=== PATIENT | male | born 1980 | race African-American/Black ===

== ENCOUNTER 2016-05-02 12:34 | Emergency (ER) | payer OTHER ==
[~2016-05-02 12:34] MED LIST: IBUP800T PO
[2016-05-02] MEDS ORDERED: HYDR-971 PO (12:50)
[2016-05-02] MEDS ORDERED: PRED50TA PO (12:50)
[2016-05-02 13:00] VITALS: BP 150/107
--- NOTE | 2016-05-02 14:24 | ED.ADGEN ---
Past History Past Medical History: No Pertinent History Past Surgical History: No Surgical History Smoking: Cigarettes Alcohol Use: None Drug Use: Marijuana Adult General HPI HPI Patient is a 36-year-old male presents emergency department complaining of central low back pain 2 days after feeling a "pull" or a "pop" in his back while playing basketball. He was in the active raising his arms when he first noticed it. He reports that the pain waxes and wanes. Although he does deny any bowel or bladder dysfunction or saddle anesthesia. He tells that its more comfortable when he standing versus when he is sitting. Review of Systems Review of Systems Constitutional: Denies fever or chills [] Eyes: Denies change in visual acuity, redness, or eye pain [] HENT: Denies nasal congestion or sore throat [] Respiratory: Denies cough or shortness of breath [] Cardiovascular: No additional information not addressed in HPI [] GI: Denies abdominal pain, nausea, vomiting, bloody stools or diarrhea [] : Denies dysuria or hematuria [] Musculoskeletal: Denies back pain or joint pain [] Integument: Denies rash or skin lesions [] Neurologic: Denies headache, focal weakness or sensory changes [] Endocrine: Denies polyuria or polydipsia [] Allergies Allergies Allergies Coded Allergies Type Severity Reaction Last Updated Verified No Known Drug Allergies 08/03/13 No Physical Exam Physical Exam Constitutional: Well developed, well nourished, no acute distress, non-toxic appearance. [] HENT: Normocephalic, atraumatic, bilateral external ears normal, oropharynx moist, no oral exudates, nose normal. [] Eyes: PERRLA, EOMI, conjunctiva normal, no discharge. [] Neck: Normal range of motion, no tenderness, supple, no stridor. [] Cardiovascular:Heart rate regular rhythm, no murmur [] Lungs & Thorax: Bilateral breath sounds clear to auscultation [] Abdomen: Bowel sounds normal, soft, no tenderness, no masses, no pulsatile masses. [] Skin: Warm, dry, no erythema, no rash. [] Back: Lumbar tenderness palpation, no CVA tenderness. [] Extremities: No tenderness, no cyanosis, no clubbing, ROM intact, no edema. [] Neurologic: Alert and oriented X 3, normal motor function, normal sensory function, no focal deficits noted. [] Psychologic: Affect normal, judgement normal, mood normal. [] Current Patient Data Vital Signs Vital Signs Date Time Temp Pulse Resp B/P Pulse Ox O2 Delivery O2 Flow Rate FiO2 05/02/16 13:00 73 18 150/107 97 Room Air 05/02/16 12:34 98.0 EKG EKG [] Radiology/Procedures Radiology/Procedures [] Course & Med Decision Making Course & Med Decision Making Pertinent Labs and Imaging studies reviewed. (See chart for details) Prescription for prednisone and Sachse. Patient was given supportive care, follow -up instructions, and return precautions. He was see his regular physician after the weekend if he continues to have any discomfort. [] Final Impression Final Impression Low back pain [] Problems: Dragon Disclaimer Dragon Disclaimer This electronic medical record was generated, in whole or in part, using a voice recognition dictation system. MARINA MORA MD May 02, 2016 14:24
== END 2016-05-02 13:00 | disposition home or self-care (01) ==
LOC: ER 12:34
DX: M54.5 Low back pain (principal); F17.210 Nicotine dependence, cigarettes, uncomplicated; F12.10 Cannabis abuse, uncomplicated; X58.XXXA Exposure to other specified factors, initial encounter; Y93.67 Activity, basketball; Y99.8 Other external cause status; Y92.89 Other specified places as the place of occurrence of the external cause
CPT/HCPCS: 99283

== ENCOUNTER 2019-11-08 23:58 | Emergency (ER) | payer OTHER ==
[~2019-11-08] VITALS: Ht 175.3 cm; Wt 101.5 kg
[~2019-11-08 23:58] MED LIST changes: +HYDR-3165 PO; -IBUP800T PO; +IBUP800T19 PO; +PRED50TA PO
[2019-11-09 00:15] VITALS: BP 148/107
--- NOTE | 2019-11-09 00:21 | PHYS DOC ---
Past History Past Medical History: No Pertinent History Past Surgical History: No Surgical History Smoking: Cigarettes Alcohol Use: None Drug Use: Marijuana General Adult HPI: HPI: "... I got such bad pain.. I had to leave work.. at [employer].. ". I ve got a dental plan.. but have not been able to get... in ... this back tooth is killinjg me.. "".. The pain is really severe" Patient is a 39 year old male who presents with above hx and complaints of dental pain at tooth 32. Patient appears have an impacted wisdom tooth with surrounding inflammation. No pointing abscesses. No trismus. Mild adenopathy at angle of mandible. The patient denies any history immunosuppression. No recent travel. No history of ill contacts. Patient normally healthy. Review of Systems: Review of Systems: Constitutional: Denies fever or chills Eyes: Denies change in visual acuity HENT: Denies nasal congestion or sore throat . Complains of dental pain Respiratory: Denies cough or shortness of breath Cardiovascular: Denies chest pain or edema GI: Denies abdominal pain, nausea, vomiting, bloody stools or diarrhea : Denies dysuria Musculoskeletal: Denies back pain or joint pain Integument: Denies rash Neurologic: Denies headache, focal weakness or sensory changes Endocrine: Denies polyuria or polydipsia Lymphatic: Denies swollen glands Psychiatric: Denies depression or anxiety Heart Score: Risk Factors: Risk Factors: DM, Current or recent (<one month) smoker, HTN, HLP, family history of CAD, obesity. Risk Scores: Score 0 - 3: 2.5% MACE over next 6 weeks - Discharge Home Score 4 - 6: 20.3% MACE over next 6 weeks - Admit for Clinical Observation Score 7 - 10: 72.7% MACE over next 6 weeks - Early Invasive Strategies Family History: Family History: Noncontributory to presentation Current Medications: Current Meds: See nursing for home meds Allergies: Allergies: Allergies Coded Allergies Type Severity Reaction Last Updated Verified No Known Drug Allergies 08/03/13 No Physical Exam: PE: Constitutional: Well developed, well nourished, in acute distress, non-toxic appearance. [] HENT: Normocephalic, atraumatic, bilateral external ears normal, oropharynx moist, no oral exudates, nose normal. Impacted molar number 32 and surrounding inflammation. Eyes: PERRLA, EOMI, conjunctiva normal, no discharge. [] Neck: Normal range of motion, no tenderness, supple, no stridor. [] Cardiovascular:Heart rate regular rhythm, no murmur [] Lungs & Thorax: Bilateral breath sounds equal apex with few scattered wheezes auscultation [] Abdomen: Bowel sounds normal, soft, no tenderness, no masses, no pulsatile masses. [] Skin: Warm, dry, no erythema, no rash. [] Back: No tenderness, no CVA tenderness. [] Extremities: No tenderness, no cyanosis, no clubbing, ROM intact, no edema. [] Neurologic: Alert and oriented X 3, normal motor function, normal sensory function, no focal deficits noted. [] Psychologic: Affect anxious,, judgement normal, mood normal. [] EKG: EKG: [] Radiology/Procedures: Radiology/Procedures: [] Course & Med Decision Making: Course & Med Decision Making Pertinent Labs and Imaging studies reviewed. (See chart for details) Patient take Tylenol and ibuprofen for pain. Patient take Keflex 500 mg 3 times a day. Patient take Vicoprofen for marked pain.. Must follow-up with dentist. Rinse mouth with peroxide 4 times a day and after eating. Follow-up primary care. Follow-up dentist or oral surgeon. Impression: 1. Right molar #32-impacted and surrounding infection gingivitis [] Natyon Disclaimer: Bernardo Disclaimer: This electronic medical record was generated, in whole or in part, using a voice recognition dictation system. Departure Departure: Disposition: 01 HOME/RESIDENCE PRIOR TO ADM Condition: STABLE Referrals: PCP,NO (PCP) Scripts Cephalexin (KEFLEX) 500 Mg Capsule 500 MG PO TID for dental infection for 10 Days, % Prov: SUMIT REEVES MD 11/09/19 Hydrocodone/Ibuprofen (HYDROCODONE-IBUPROFEN 7.5-200 ) 1 Each Tablet 1 TAB PO PRN Q6HRS PRN for PAIN, #30 TAB 0 Refills Prov: SUMIT REEVES MD 11/09/19 Justification of Admission: Justification of Admission: Justification of Admission Dx: N/A Dragon Disclaimer This chart was dictated in whole or in part using Voice Recognition software in a busy, high-work load, and often noisy Emergency Department environment. It may contain unintended and wholly unrecognized errors or omissions. SUMIT REEVES MD Nov 09, 2019 00:21
[2019-11-09] MEDS ORDERED: cefTRIAXone IM 1 GM VIAL IM ONE (00:30)
[2019-11-09] MEDS ORDERED: KETOROLAC 60 MG/2 ML VIAL. IM ONE (00:30)
[2019-11-09] MEDS ORDERED: HYDR-1179 PO (00:32)
[2019-11-09] MEDS ORDERED: CEPH-264 PO (00:32)
[2019-11-09] MEDS ORDERED: cefTRIAXone SODIUM 1 GM VIAL ONE (00:52)
== END 2019-11-09 01:25 | disposition home or self-care (01) ==
LOC: ER 23:58
DX: K01.1 Impacted teeth (principal); K05.10 Chronic gingivitis, plaque induced; F17.210 Nicotine dependence, cigarettes, uncomplicated
CPT/HCPCS: 96372; 99284; J0696; J1885